=== PATIENT | male | born 2000 | race Caucasian/White ===

== ENCOUNTER 2023-02-11 11:54 | Emergency (ER) | payer SELFPAY ==
--- NOTE | 2023-02-11 13:02 | RAD REPORT ---
EXAM DESCRIPTION: CT - Stone Protocol - 02/11/2023 12:20 pm CLINICAL HISTORY: left flank pain COMPARISON: No comparisons TECHNIQUE: CT imaging of the abdomen and pelvis was performed without IV contrast. Multiplanar refor mats were generated and reviewed. All CT scans are performed using dose optimization technique as appropriate and may include automated exposure control or mA/KV adjustment according to patient size. FINDINGS: No suspicious findings in the lung bases. Early noted left lower lobe nodules, largest crispin suring 4 millimeter, likely benign. The liver is markedly hypoattenuating throughout, suggestive of steatosis. Adrenal glands, spleen, an d pancreas show no suspicious findings. Gallbladder and biliary tree are also without suspicious find ing. No hydronephrosis or suspicious renal mass. No significant adrenal finding. Isodense masses and pyel onephritis cannot be excluded in the absence of IV contrast. No dilated bowel loops or bowel wall thickening. Appendix is unremarkable. No free air, free fluid or inflammatory stranding. No hernia, mass or bulky lymphadenopathy. The urinary bladder is without sig nificant finding. No suspicious bony findings. Degenerative changes at L4-5 and L5-S1, with discogenic and endplate danica nges resulting in degrees of canal stenosis, not well evaluated on CT IMPRESSION: Non-contrast enhanced CT abdomen and pelvis showing no acute abnormality. Diffuse hepatic parenchymal hypoattenuation suggesting steatosis. L4-5 and L5-S1 degenerative changes resulting in degrees of canal stenosis, not well evaluated on CT. Incidentally noted small left lower lobe nodules as above.
[2023-02-11] MEDS ORDERED: KETOROLAC 30 MG/ML INJ ONE (13:28)
[2023-02-11] MEDS ORDERED: CYCLOBENZAPRINE 10 MG TAB ONE (13:28)
[2023-02-11 13:45] LABS: Specific Gravity 1.024 (1.005-1.030); Urine Bilirubin NEGATIVE (Negative); Urine Blood Negative (Negative); Urine Clarity Clear (Clear); Urine Color Light-Yellow (Yellow); Urine Glucose NEGATIVE (Negative); Urine Protein NEGATIVE (Negative); Urine Urobilinogen Normal (Normal); Urine pH 5.5 (5.0-7.0)
[2023-02-11 13:46] LABS: Absolute Lymphocytes (CBC) 2.8 K/uL (0.7-4.9); Hematocrit 45.3 % (39.6-49.0); Lymphocytes % 32.7 % (15.3-44.8); MCV 87.4 fL (80-100); MPV 8.4 fL (7.6-11.3); RBC Red Blood Cell Count 5.19 M/uL (4.33-5.43)
[2023-02-11 14:10] LABS: Albumin 4.2 g/dL (3.4-5.0); Bilirubin Total 0.4 mg/dL (0.2-1.0); Potassium 3.9 mEq/L (3.5-5.1); Protein, Total 7.9 g/dL (6.4-8.2)
--- NOTE | 2023-02-11 14:16 | ER ---
Nurse's Notes [facility] Name: Larry Guerra Age: 22 yrs Sex: Male : 2000 Arrival Date: 02/11/2023 Time: 11:54 Bed 11 Private MD: Diagnosis: Low back pain Presentation: 02/11 12:10 Chief complaint: Patient states: LEFT FLANK PAIN X1 WEEK. DENIES URINARY SYMPTOMS. cm10 Coronavirus screen: Vaccine status: Patient reports being unvaccinated. Ebola Screen: No symptoms or risks identified at this time. Initial Sepsis Screen: Does the patient meet any 2 criteria? No. Patient's initial sepsis screen is negative. Does the patient have a suspected source of infection? No. Patient's initial sepsis screen is negative. Risk Assessment: Do you want to hurt yourself or someone else? Patient reports no desire to harm self or others. Onset of symptoms is unknown. 12:10 Method Of Arrival: Ambulatory cm10 12:10 Acuity: OBED 3 cm10 Triage Assessment: 12:12 General: Appears in no apparent distress. comfortable, Behavior is calm, cooperative. cm10 Pain: Complains of pain in left flank Pain currently is 6 out of 10 on a pain scale. 12:13 Neuro: No deficits noted. Level of Consciousness is awake, alert, Oriented to person, cm10 place, time, situation. Cardiovascular: No deficits noted. Respiratory: No deficits noted. Airway is patent Respiratory effort is even, unlabored, Respiratory pattern is regular, symmetrical. Historical: - Allergies: 12:11 No Known Allergies; cm10 - PMHx: 12:11 Myocardial infarction; Hypertensive disorder; cm10 - Immunization history:: Adult Immunizations unknown. - Social history:: Smoking status: Patient denies any tobacco usage or history of. - Family history:: not pertinent. - Hospitalizations: : No recent hospitalization is reported. Screenin:40 [facility] ED Fall Risk Assessment (Adult) Score/Fall Risk Level 0 - 2 = Low Risk ll1 Oriented to surroundings, Maintained a safe environment, Educated pt \T\ family on fall prevention, incl call for assistance when getting out of bed, Hourly rounding (assess needs \T\ fall precautionary measures) done. Abuse screen: Denies threats or abuse. Nutritional screening: No deficits noted. Tuberculosis screening: No symptoms or risk factors identified. Assessment: 13:32 Reassessment: No changes from previously documented assessment. Patient and/or family ll1 updated on plan of care and expected duration. Pain level reassessed. 14:38 Reassessment: No changes from previously documented assessment. Patient and/or family ll1 updated on plan of care and expected duration. Pain level reassessed. Patient is alert, oriented x 3, equal unlabored respirations, skin warm/dry/pink. Vital Signs: 12:10 BP 149 / 74; Pulse 77; Resp 16; Temp 98.2; Pulse Ox 99% ; Weight 127.01 kg; Height 6 cm10 ft. 2 in. ; Pain 6/10; 14:38 BP 127 / 62; Pulse 67; Resp 17; Pulse Ox 99% ; ll1 12:10 Body Mass Index 35.95 (127.01 kg, 187.96 cm) cm10 12:10 Pain Scale: Adult cm10 ED Course: 11:54 Patient arrived in ED. rg4 11:56 Dillon Naranjo MD is Attending Physician. rn 12:11 Triage completed. cm10 12:12 Arm band placed on Patient placed in waiting room. cm10 12:21 CT Stone Protocol In Process Unspecified. EDMS 13:31 Makayla Graf, RN is Primary Nurse. cm10 13:32 Urinalysis w/ reflexes Sent. cm10 13:32 CBC with Diff Sent. cm10 13:32 CMP Sent. cm10 13:32 Initial lab(s) drawn, by mi, sent to lab. Inserted saline lock: 20 gauge in right cm10 antecubital area, using aseptic technique. Blood collected. 14:40 No provider procedures requiring assistance completed. IV discontinued, intact, ll1 bleeding controlled, No redness/swelling at site. Pressure dressing applied. 16:33 Patient has correct armband on for positive identification. Bed in low position. Call ll1 light in reach. Provided Education on: N/A. Administered Medications: 13:32 Drug: Ketorolac IVP 30 mg Route: IVP; Site: right antecubital; cm10 14:40 Follow up: Response: No adverse reaction; Pain is decreased; RASS: Alert and Calm (0) ll1 13:32 Drug: Cyclobenzaprine PO 10 mg Route: PO; cm10 14:40 Follow up: Response: No adverse reaction; Pain is decreased; RASS: Alert and Calm (0) ll1 Medication: 14:40 VIS not applicable for this client. ll1 Outcome: 14:16 Discharge ordered by . rn 14:40 Patient left the ED. ds4 14:40 Discharged to home ambulatory. ll1 14:40 Condition: stable 14:40 Discharge instructions given to patient, Instructed on discharge instructions, follow up and referral plans. no drinking with medication, no driving heavy equipment, medication usage, Demonstrated understanding of instructions, follow-up care, medications, Prescriptions given X 2. Signatures: Dispatcher [employer] EDMS Dillon Naranjo MD MD rn Swanson, Donovan ds4 Miroslava Salmeron4 Cristobal Gillespie RN RN ll1 Makayla Graf RN RN cm10
--- NOTE | 2023-02-11 14:16 | EDPHYS ---
Physician Documentation [facility] Name: Larry Guerra Age: 22 yrs Sex: Male : 2000 Arrival Date: 02/11/2023 Time: 11:54 Bed 11 Private MD: ED Physician Dillon Naranjo HPI: 02/11 12:48 This 22 yrs old Male presents to ER via Ambulatory with complaints of Low Back Pain, rn Flank Pain. 12:48 The patient presents with pain that is acute. The symptoms are located in the low back. rn The pain does not radiate. Onset: The symptoms/episode began/occurred 1 week(s) ago. Modifying factors: The patient symptoms are alleviated by remaining still, the patient symptoms are aggravated by any movement. Associated signs and symptoms: Pertinent positives: none Pertinent negatives: abdominal pain, dysuria, fever, hematuria, incontinence, nausea, numbness, tingling, urinary retention, vomiting, weakness. Severity of symptoms: At their worst the symptoms were moderate, in the emergency department the symptoms have improved. The patient has not experienced similar symptoms in the past. Pt reports left lower back pain, no radiation, no hx of kidney stones, no trauma. No fever. No diarrhea. No weakness/numbness. . Historical: - Allergies: 12:11 No Known Allergies; cm10 - PMHx: 12:11 Myocardial infarction; Hypertensive disorder; cm10 - Immunization history:: Adult Immunizations unknown. - Social history:: Smoking status: Patient denies any tobacco usage or history of. - Family history:: not pertinent. - Hospitalizations: : No recent hospitalization is reported. ROS: 12:48 Constitutional: Negative for fever, chills, and weight loss, Neck: Negative for injury, rn pain, and swelling, Cardiovascular: Negative for chest pain, palpitations, and edema, Respiratory: Negative for shortness of breath, cough, wheezing, and pleuritic chest pain, Abdomen/GI: Negative for abdominal pain, nausea, vomiting, diarrhea, and constipation, Back: + left lower back pain : Negative for injury, bleeding, discharge, and swelling, MS/Extremity: Negative for injury and deformity, Skin: Negative for injury, rash, and discoloration, Neuro: Negative for headache, weakness, numbness, tingling, and seizure. Exam: 12:48 Constitutional: This is a well developed, well nourished patient who is awake, alert, rn and in no acute distress. Cardiovascular: Regular rate and rhythm. No pulse deficits. Respiratory: No increased work of breathing, no retractions or nasal flaring. Abdomen/GI: soft, non-tender Back: No spinal tenderness. No costovertebral tenderness. + mild tenderness left lower perilumbar region muscles Skin: Warm, dry MS/ Extremity: Pulses equal, no cyanosis. Vital Signs: 12:10 BP 149 / 74; Pulse 77; Resp 16; Temp 98.2; Pulse Ox 99% ; Weight 127.01 kg; Height 6 cm10 ft. 2 in. ; Pain 6/10; 14:38 BP 127 / 62; Pulse 67; Resp 17; Pulse Ox 99% ; ll1 12:10 Body Mass Index 35.95 (127.01 kg, 187.96 cm) cm10 12:10 Pain Scale: Adult cm10 MDM: 11:56 Patient medically screened. rn 14:16 Differential diagnosis: arthritis, strain, sciatica, Herniated disc UTI, rn ureterolithiasis. Data reviewed: vital signs, nurses notes, lab test result(s), radiologic studies, CT scan, and as a result, I will discharge patient. Counseling: I had a detailed discussion with the patient and/or guardian regarding: the historical points, exam findings, and any diagnostic results supporting the discharge/admit diagnosis, lab results, radiology results, the need for outpatient follow up, to return to the emergency department if symptoms worsen or persist or if there are any questions or concerns that arise at home. Response to treatment: the patient's symptoms have mildly improved after treatment, and as a result, I will discharge patient. Special discussion: I discussed with the patient/guardian in detail that at this point there is no indication for admission to the hospital. It is understood, however, that if the symptoms persist or worsen the patient needs to return immediately for re-evaluation. 02/11 12:08 Order name: CBC with Diff; Complete Time: 14:15 rn 02/11 12:08 Order name: CMP; Complete Time: 14:15 rn 02/11 12:08 Order name: Urinalysis w/ reflexes; Complete Time: 14:15 rn 02/11 12:08 Order name: CT Stone Protocol; Complete Time: 13:13 rn 02/11 12:08 Order name: IV Saline Lock; Complete Time: 13:32 rn 02/11 12:08 Order name: Labs collected and sent; Complete Time: 13:32 rn Administered Medications: 13:32 Drug: Ketorolac IVP 30 mg Route: IVP; Site: right antecubital; cm10 14:40 Follow up: Response: No adverse reaction; Pain is decreased; RASS: Alert and Calm (0) ll1 13:32 Drug: Cyclobenzaprine PO 10 mg Route: PO; cm10 14:40 Follow up: Response: No adverse reaction; Pain is decreased; RASS: Alert and Calm (0) ll1 Disposition Summary: 02/11/23 14:16 Discharge Ordered Location: Home rn Problem: new rn Symptoms: have improved rn Condition: Stable rn Diagnosis - Low back pain rn Followup: rn - With: Private Physician - When: As needed - Reason: Recheck today's complaints, Re-evaluation by your physician Discharge Instructions: - Discharge Summary Sheet rn - Acute Back Pain, Adult rn - Musculoskeletal Pain rn Forms: - Medication Reconciliation Form rn - Thank You Letter rn - Antibiotic furniture fabricator - Prescription Opioid Use rn - [email or web address] rn - Work release form ds4 Prescriptions: - Cyclobenzaprine 10 mg Oral Tablet - take 1 tablet by ORAL route every 8-12 hours As needed; 15 tablet; Refills: 0, rn Product Selection Permitted - Medrol (Homer) 4 mg Oral Tablets, Dose Pack - take 1 tablet by ORAL route as directed - follow package instructions; 1 rn packet; Refills: 0, Product Selection Permitted Signatures: Dispatcher [employer] Dillon Moeller MD MD rn Martinez, Clarissa, RN RN cm10 Cristobal Gillespie RN 1
[2023-02-11 15:17] VITALS: BP 149/74; TEMP 98.2; O2SAT 99
== END 2023-02-11 14:40 | disposition home or self-care (01) ==
LOC: ER 11:54
DX: M54.50 Low back pain, unspecified (principal)
CPT/HCPCS: 36415; 74176; 76377; 80053; 81003; 85025; 96374; 99284